=== PATIENT | male | born 1930 | race Caucasian/White ===

== ENCOUNTER 2020-10-25 14:40 | Inpatient (IN) ==
[2020-10-26] MEDS ORDERED: D5% in Water 1,000 ML IVC PRN (17:29)
[2020-10-26] MEDS ORDERED: Dextrose Gel 15 GM/37.5 ML TUBE PO PRN ×2 (17:29)
[2020-10-26] MEDS ORDERED: *HR* Dextrose 50 % in Water (Vial) 50 ML VIAL IVP PRN (17:29)
[2020-10-26] MEDS: Sennosides/Docusate Sodium TABLET PO SCH (20:19)
[2020-10-26] MEDS ORDERED: [UNRECOGNIZED DRUG - OTHER] PO SCH (21:00)
[2020-10-26] MEDS: Insulin LISPRO 300 UNITS/3 ML VIAL SUBQ SCH (21:27)
[2020-10-27 08:01] LABS: Basophils % 0.2 %; Eosinophils # 0.3 K/mcL (0.0-0.6); Hematocrit 24.1 % (37.5-50.1); Hemoglobin 7.9 g/dL (12.9-16.9); Immature Granulocytes % 1.1 % (0-4); Lymphocytes # 1.5 K/mcL (0.6-4.6); Lymphocytes % 13.9 %; Mean Corpuscular HGB Conc 32.8 g/dL (31.6-35.5); Mean Corpuscular Hemoglobin 35.1 pg (28.0-33.3); Mean Corpuscular Volume 107.1 fL (83.0-100.0); Mean Platelet Volume 11.1 fL (9.4-12.4); Monocytes # 1.3 K/mcL (0.0-1.3); Monocytes % 11.7 %; Neutrophils # 7.8 K/mcL (1.6-8.9); Platelet Count 328 K/mcL (140-400); Red Blood Count 2.25 M/mcL (4.19-5.50); Red Cell Distribution Width 16.1 % (11.5-14.5); Segmented Neutrophils % 70.1 %; White Blood Count 11.1 K/mcL (4.3-11.1)
[2020-10-27 08:14] LABS: Calcium 7.6 mg/dL (8.6-10.3); Potassium 4.2 mEq/L (3.5-5.1)
[2020-10-27] MEDS ORDERED: Furosemide 20 MG/2 ML VIAL IVP ONE ×2 (08:46→16:07)
[2020-10-27] MEDS: Multivit/Ca/Min/Fe/FA 1 TAB TABLET PO SCH (09:25)
[2020-10-27] MEDS: GlipiZIDE 5 MG TABLET PO SCH ×2 (09:25→16:41)
[2020-10-27] MEDS: allopurinoL 300 MG TABLET PO SCH (09:25)
[2020-10-27] MEDS: *HR* Pioglitazone 45 MG TABLET PO SCH (09:25)
[2020-10-27] MEDS: Finasteride 5 MG TABLET PO SCH (09:26)
[2020-10-27] MEDS: Insulin LISPRO 300 UNITS/3 ML VIAL SUBQ SCH ×4 (09:26→20:39)
[2020-10-27] MEDS: Sennosides/Docusate Sodium TABLET PO SCH ×2 (09:32→20:39)
[2020-10-28 07:45] LABS: Hematocrit 24.5 % (37.5-50.1); Mean Corpuscular HGB Conc 32.7 g/dL (31.6-35.5); Mean Corpuscular Hemoglobin 35.1 pg (28.0-33.3); Mean Corpuscular Volume 107.5 fL (83.0-100.0); Mean Platelet Volume 10.9 fL (9.4-12.4); Platelet Count 340 K/mcL (140-400); Red Blood Count 2.28 M/mcL (4.19-5.50); Red Cell Distribution Width 16.5 % (11.5-14.5); White Blood Count 11.3 K/mcL (4.3-11.1)
[2020-10-28 08:03] LABS: Calcium 7.7 mg/dL (8.6-10.3); Potassium 4.3 mEq/L (3.5-5.1)
[2020-10-28] MEDS ORDERED: Furosemide 20 MG TABLET PO SCH (09:00)
[2020-10-28] MEDS: *HR* Pioglitazone 45 MG TABLET PO SCH (11:32)
[2020-10-28] MEDS: Insulin LISPRO 300 UNITS/3 ML VIAL SUBQ SCH ×4 (11:32→20:22)
[2020-10-28] MEDS: GlipiZIDE 5 MG TABLET PO SCH ×2 (11:33→16:34)
[2020-10-28] MEDS: Furosemide 20 MG TABLET PO SCH ×2 (11:33→16:34)
[2020-10-28] MEDS: Finasteride 5 MG TABLET PO SCH (11:33)
[2020-10-28] MEDS: Multivit/Ca/Min/Fe/FA 1 TAB TABLET PO SCH (11:33)
[2020-10-28] MEDS: allopurinoL 300 MG TABLET PO SCH (11:33)
[2020-10-28] MEDS: Sennosides/Docusate Sodium TABLET PO SCH ×2 (11:33→20:24)
[2020-10-29] MEDS: Insulin LISPRO 300 UNITS/3 ML VIAL SUBQ SCH ×4 (07:31→20:37)
[2020-10-29] MEDS: Sennosides/Docusate Sodium TABLET PO SCH ×2 (09:06→20:37)
[2020-10-29] MEDS: Furosemide 20 MG TABLET PO SCH ×2 (09:07→17:25)
[2020-10-29] MEDS: *HR* Pioglitazone 45 MG TABLET PO SCH (09:07)
[2020-10-29] MEDS: allopurinoL 300 MG TABLET PO SCH (09:07)
[2020-10-29] MEDS: GlipiZIDE 5 MG TABLET PO SCH ×2 (09:07→17:24)
[2020-10-29] MEDS: Finasteride 5 MG TABLET PO SCH (09:07)
[2020-10-29] MEDS: Multivit/Ca/Min/Fe/FA 1 TAB TABLET PO SCH (09:07)
[2020-10-29] MEDS: Acetaminophen 325 MG TABLET PO PRN (09:28)
[2020-10-30 07:16] VITALS: BP 138/68
[2020-10-30] MEDS: Insulin LISPRO 300 UNITS/3 ML VIAL SUBQ SCH (08:22)
[2020-10-30 09:43] LABS: Hemoglobin 8.8 g/dL (12.9-16.9); Mean Corpuscular HGB Conc 32.6 g/dL (31.6-35.5); Mean Corpuscular Hemoglobin 35.5 pg (28.0-33.3); Mean Corpuscular Volume 108.9 fL (83.0-100.0); Mean Platelet Volume 10.9 fL (9.4-12.4); Platelet Count 381 K/mcL (140-400); Red Blood Count 2.48 M/mcL (4.19-5.50); White Blood Count 12.9 K/mcL (4.3-11.1)
[2020-10-30] MEDS: *HR* Pioglitazone 45 MG TABLET PO SCH (09:53)
[2020-10-30] MEDS: GlipiZIDE 5 MG TABLET PO SCH (09:53)
[2020-10-30] MEDS: Acetaminophen 325 MG TABLET PO PRN (09:53)
[2020-10-30] MEDS: Multivit/Ca/Min/Fe/FA 1 TAB TABLET PO SCH (09:53)
[2020-10-30] MEDS: allopurinoL 300 MG TABLET PO SCH (09:54)
[2020-10-30] MEDS: Sennosides/Docusate Sodium TABLET PO SCH (09:54)
[2020-10-30] MEDS: Finasteride 5 MG TABLET PO SCH (09:54)
[2020-10-30] MEDS: Furosemide 20 MG TABLET PO SCH (09:54)
[2020-10-30 10:02] LABS: Albumin 2.1 g/dL (3.5-5.7); Albumin/Globulin Ratio 0.6 (1.1-2.2); Bilirubin,Total 0.7 mg/dL (0.3-1.0); Calcium 7.7 mg/dL (8.6-10.3); Globulin 3.4 g/dL (2.4-3.5); Magnesium 2.1 mg/dL (1.6-2.6); Potassium 4.1 mEq/L (3.5-5.1); Total Protein 5.5 g/dL (6.4-8.9)
== END 2020-10-30 11:30 | disposition short-term general hospital (02) | DRG 559 ==
LOC: INPPIK 10-26 18:33
PROVIDERS: ADMIT Family Medicine; ATTEND Family Medicine

== ENCOUNTER 2020-11-01 17:58 | Inpatient (IN) ==
[2020-11-01] MEDS ORDERED: Nitroglycerin 0.4 MG TAB.SUBL SL PRN (20:23)
[2020-11-01] MEDS ORDERED: Psyllium 1 PACKET POWD.PACK PO PRN (20:23)
[2020-11-01] MEDS ORDERED: polyethylene glycoL 3350 17 GM POWD.PACK PO PRN (20:23)
[2020-11-01] MEDS: ICAPS AREDS2 PO SCH (22:05)
[2020-11-01] MEDS: OXcarbazepine 150 MG TABLET PO SCH (22:05)
[2020-11-01] MEDS: GlipiZIDE 5 MG TABLET PO SCH (22:05)
[2020-11-02] MEDS ORDERED: *HR* Enoxaparin 40 MG/0.4 ML SYRINGE SQ SCH (07:00)
[2020-11-02 08:16] LABS: Basophils % 0.2 %; Eosinophils # 0.4 K/mcL (0.0-0.6); Eosinophils % 4.4 %; Hematocrit 25.1 % (37.5-50.1); Hemoglobin 8.3 g/dL (12.9-16.9); Immature Granulocytes % 0.5 % (0-4); Lymphocytes # 1.5 K/mcL (0.6-4.6); Lymphocytes % 15.3 %; Mean Corpuscular HGB Conc 33.1 g/dL (31.6-35.5); Mean Corpuscular Hemoglobin 35.2 pg (28.0-33.3); Mean Corpuscular Volume 106.4 fL (83.0-100.0); Mean Platelet Volume 11.1 fL (9.4-12.4); Monocytes % 9.6 %; Neutrophils # 6.9 K/mcL (1.6-8.9); Platelet Count 298 K/mcL (140-400); Red Blood Count 2.36 M/mcL (4.19-5.50); Red Cell Distribution Width 16.7 % (11.5-14.5); White Blood Count 9.9 K/mcL (4.3-11.1)
[2020-11-02] MEDS: *HR* Pioglitazone 45 MG TABLET PO SCH (08:56)
[2020-11-02] MEDS: Furosemide 20 MG TABLET PO SCH ×2 (08:56→16:30)
[2020-11-02] MEDS: allopurinoL 300 MG TABLET PO SCH (08:58)
[2020-11-02] MEDS: Finasteride 5 MG TABLET PO SCH (08:58)
[2020-11-02] MEDS: GlipiZIDE 5 MG TABLET PO SCH ×2 (08:58→21:12)
[2020-11-02] MEDS: Multivit/Ca/Min/Fe/FA 1 TAB TABLET PO SCH (08:58)
[2020-11-02] MEDS: OXcarbazepine 150 MG TABLET PO SCH ×2 (08:58→21:12)
[2020-11-02 08:59] LABS: Calcium 7.6 mg/dL (8.6-10.3)
[2020-11-02] MEDS: ICAPS AREDS2 PO SCH ×3 (08:59→21:14)
[2020-11-02] MEDS ORDERED: CO Q10 100 MG PO SCH (09:00)
[2020-11-02] MEDS ORDERED: D5% in Water 1,000 ML IVC PRN (18:38)
[2020-11-02] MEDS ORDERED: Dextrose Gel 15 GM/37.5 ML TUBE PO PRN ×2 (18:38)
[2020-11-02] MEDS ORDERED: *HR* Dextrose 50 % in Water (Vial) 50 ML VIAL IVP PRN (18:38)
[2020-11-02] MEDS: Insulin LISPRO 300 UNITS/3 ML VIAL SUBQ SCH (21:14)
[2020-11-03] MEDS: *HR* Enoxaparin 30 MG/0.3 ML SYRINGE SQ SCH (05:57)
[2020-11-03] MEDS: Insulin LISPRO 300 UNITS/3 ML VIAL SUBQ SCH ×4 (10:07→20:32)
[2020-11-03] MEDS: GlipiZIDE 5 MG TABLET PO SCH ×2 (10:08→20:31)
[2020-11-03] MEDS: allopurinoL 300 MG TABLET PO SCH (10:08)
[2020-11-03] MEDS: Furosemide 20 MG TABLET PO SCH ×2 (10:08→17:37)
[2020-11-03] MEDS: OXcarbazepine 150 MG TABLET PO SCH ×2 (10:09→20:31)
[2020-11-03] MEDS: Finasteride 5 MG TABLET PO SCH (10:09)
[2020-11-03] MEDS: Multivit/Ca/Min/Fe/FA 1 TAB TABLET PO SCH (10:09)
[2020-11-03] MEDS: *HR* Pioglitazone 45 MG TABLET PO SCH (10:09)
[2020-11-03] MEDS: ICAPS AREDS2 PO SCH ×2 (10:15→20:31)
[2020-11-04] MEDS: *HR* Enoxaparin 30 MG/0.3 ML SYRINGE SQ SCH (06:06)
[2020-11-04] MEDS: Acetaminophen 325 MG TABLET PO PRN (09:38)
[2020-11-04] MEDS: OXcarbazepine 150 MG TABLET PO SCH ×2 (09:52→20:36)
[2020-11-04] MEDS: *HR* Pioglitazone 45 MG TABLET PO SCH (09:53)
[2020-11-04] MEDS: Furosemide 20 MG TABLET PO SCH ×2 (09:53→16:56)
[2020-11-04] MEDS: Multivit/Ca/Min/Fe/FA 1 TAB TABLET PO SCH (09:53)
[2020-11-04] MEDS: allopurinoL 300 MG TABLET PO SCH (09:53)
[2020-11-04] MEDS: Finasteride 5 MG TABLET PO SCH (09:53)
[2020-11-04] MEDS: Insulin LISPRO 300 UNITS/3 ML VIAL SUBQ SCH ×4 (09:53→20:35)
[2020-11-04] MEDS: GlipiZIDE 5 MG TABLET PO SCH ×2 (09:53→20:36)
[2020-11-04] MEDS: ICAPS AREDS2 PO SCH ×2 (09:55→20:36)
[2020-11-04] MEDS ORDERED: *HR* Enoxaparin 60 MG/0.6 ML SYRINGE SQ STA (17:05)
[2020-11-05] MEDS: ICAPS AREDS2 PO SCH ×2 (10:52→20:08)
[2020-11-05] MEDS: *HR* Pioglitazone 45 MG TABLET PO SCH (10:54)
[2020-11-05] MEDS: allopurinoL 300 MG TABLET PO SCH (10:54)
[2020-11-05] MEDS: GlipiZIDE 5 MG TABLET PO SCH ×2 (10:54→20:07)
[2020-11-05] MEDS: OXcarbazepine 150 MG TABLET PO SCH ×2 (10:54→20:07)
[2020-11-05] MEDS: *HR* Rivaroxaban 15 MG TABLET PO SCH ×2 (10:54→17:39)
[2020-11-05] MEDS: Multivit/Ca/Min/Fe/FA 1 TAB TABLET PO SCH (10:54)
[2020-11-05] MEDS: Finasteride 5 MG TABLET PO SCH (10:55)
[2020-11-05] MEDS: Furosemide 20 MG TABLET PO SCH ×2 (10:55→17:39)
[2020-11-05] MEDS: Insulin LISPRO 300 UNITS/3 ML VIAL SUBQ SCH ×4 (11:02→19:57)
[2020-11-05] MEDS: Acetaminophen 325 MG TABLET PO PRN (11:50)
[2020-11-06] MEDS: Insulin LISPRO 300 UNITS/3 ML VIAL SUBQ SCH ×4 (07:55→21:19)
[2020-11-06] MEDS: Finasteride 5 MG TABLET PO SCH (08:45)
[2020-11-06] MEDS: *HR* Pioglitazone 45 MG TABLET PO SCH (08:45)
[2020-11-06] MEDS: allopurinoL 300 MG TABLET PO SCH (08:45)
[2020-11-06] MEDS: Furosemide 20 MG TABLET PO SCH ×2 (08:45→17:20)
[2020-11-06] MEDS: OXcarbazepine 150 MG TABLET PO SCH ×2 (08:46→21:16)
[2020-11-06] MEDS: Multivit/Ca/Min/Fe/FA 1 TAB TABLET PO SCH (08:46)
[2020-11-06] MEDS: *HR* Rivaroxaban 15 MG TABLET PO SCH ×2 (08:46→17:21)
[2020-11-06] MEDS: GlipiZIDE 5 MG TABLET PO SCH ×2 (08:46→21:16)
[2020-11-06] MEDS: ICAPS AREDS2 PO SCH ×2 (08:52→21:16)
[2020-11-07] MEDS: Insulin LISPRO 300 UNITS/3 ML VIAL SUBQ SCH ×4 (08:15→20:23)
[2020-11-07] MEDS: GlipiZIDE 5 MG TABLET PO SCH ×2 (08:42→20:22)
[2020-11-07] MEDS: Finasteride 5 MG TABLET PO SCH (08:43)
[2020-11-07] MEDS: *HR* Pioglitazone 45 MG TABLET PO SCH (08:43)
[2020-11-07] MEDS: *HR* Rivaroxaban 15 MG TABLET PO SCH ×2 (08:44→17:05)
[2020-11-07] MEDS: allopurinoL 300 MG TABLET PO SCH (08:44)
[2020-11-07] MEDS: Furosemide 20 MG TABLET PO SCH ×2 (08:44→17:05)
[2020-11-07] MEDS: OXcarbazepine 150 MG TABLET PO SCH ×2 (08:44→20:23)
[2020-11-07] MEDS: Multivit/Ca/Min/Fe/FA 1 TAB TABLET PO SCH (08:44)
[2020-11-07] MEDS: ICAPS AREDS2 PO SCH ×2 (08:47→20:22)
[2020-11-08] MEDS: Insulin LISPRO 300 UNITS/3 ML VIAL SUBQ SCH ×4 (07:40→21:27)
[2020-11-08] MEDS: Multivit/Ca/Min/Fe/FA 1 TAB TABLET PO SCH (09:36)
[2020-11-08] MEDS: allopurinoL 300 MG TABLET PO SCH (09:37)
[2020-11-08] MEDS: OXcarbazepine 150 MG TABLET PO SCH ×2 (09:37→21:25)
[2020-11-08] MEDS: GlipiZIDE 5 MG TABLET PO SCH ×2 (09:37→21:25)
[2020-11-08] MEDS: Finasteride 5 MG TABLET PO SCH (09:37)
[2020-11-08] MEDS: *HR* Rivaroxaban 15 MG TABLET PO SCH ×2 (09:37→17:18)
[2020-11-08] MEDS: *HR* Pioglitazone 45 MG TABLET PO SCH (09:37)
[2020-11-08] MEDS: Furosemide 20 MG TABLET PO SCH (09:37)
[2020-11-08] MEDS: Insulin DETEMIR 100 UNIT/ML X5UNITS SUBQ SCH (09:41)
[2020-11-08] MEDS: ICAPS AREDS2 PO SCH ×2 (09:44→21:30)
[2020-11-08] MEDS: Furosemide 40 MG TABLET PO SCH (17:18)
[2020-11-09 07:39] LABS: Hematocrit 26.8 % (37.5-50.1); Hemoglobin 8.7 g/dL (12.9-16.9); Mean Corpuscular HGB Conc 32.5 g/dL (31.6-35.5); Mean Corpuscular Hemoglobin 35.4 pg (28.0-33.3); Mean Corpuscular Volume 108.9 fL (83.0-100.0); Platelet Count 335 K/mcL (140-400); Red Blood Count 2.46 M/mcL (4.19-5.50); Red Cell Distribution Width 16.5 % (11.5-14.5); White Blood Count 8.8 K/mcL (4.3-11.1)
[2020-11-09 07:53] LABS: Calcium 7.9 mg/dL (8.6-10.3); Potassium 4.3 mEq/L (3.5-5.1)
[2020-11-09] MEDS: Insulin LISPRO 300 UNITS/3 ML VIAL SUBQ SCH ×4 (07:53→21:50)
[2020-11-09] MEDS: Multivit/Ca/Min/Fe/FA 1 TAB TABLET PO SCH (08:26)
[2020-11-09] MEDS: Furosemide 40 MG TABLET PO SCH ×2 (08:26→16:29)
[2020-11-09] MEDS: OXcarbazepine 150 MG TABLET PO SCH ×2 (08:26→21:50)
[2020-11-09] MEDS: Finasteride 5 MG TABLET PO SCH (08:26)
[2020-11-09] MEDS: GlipiZIDE 5 MG TABLET PO SCH ×2 (08:26→21:50)
[2020-11-09] MEDS: *HR* Pioglitazone 45 MG TABLET PO SCH (08:27)
[2020-11-09] MEDS: allopurinoL 300 MG TABLET PO SCH (08:27)
[2020-11-09] MEDS: *HR* Rivaroxaban 15 MG TABLET PO SCH ×2 (08:28→16:29)
[2020-11-09] MEDS: ICAPS AREDS2 PO SCH ×2 (08:30→21:50)
[2020-11-09] MEDS: Insulin DETEMIR 100 UNIT/ML X5UNITS SUBQ SCH (08:34)
[2020-11-10] MEDS: Insulin LISPRO 300 UNITS/3 ML VIAL SUBQ SCH ×4 (08:01→21:13)
[2020-11-10 08:47] LABS: Basophils % 0.3 %; Eosinophils # 0.5 K/mcL (0.0-0.6); Eosinophils % 5.6 %; Hematocrit 26.6 % (37.5-50.1); Hemoglobin 8.6 g/dL (12.9-16.9); Immature Granulocytes % 0.3 % (0-4); Lymphocytes # 1.3 K/mcL (0.6-4.6); Lymphocytes % 15.4 %; Mean Corpuscular HGB Conc 32.3 g/dL (31.6-35.5); Mean Corpuscular Hemoglobin 35.1 pg (28.0-33.3); Mean Corpuscular Volume 108.6 fL (83.0-100.0); Mean Platelet Volume 11.1 fL (9.4-12.4); Monocytes % 11.9 %; Neutrophils # 5.7 K/mcL (1.6-8.9); Platelet Count 323 K/mcL (140-400); Red Blood Count 2.45 M/mcL (4.19-5.50); Red Cell Distribution Width 16.6 % (11.5-14.5); Segmented Neutrophils % 66.5 %; White Blood Count 8.6 K/mcL (4.3-11.1)
[2020-11-10 08:54] LABS: Calcium 7.7 mg/dL (8.6-10.3); Potassium 4.1 mEq/L (3.5-5.1)
[2020-11-10] MEDS ORDERED: Ipratropium/Albuterol Neb 3 ML IH PRN (09:09)
[2020-11-10] MEDS: *HR* Pioglitazone 45 MG TABLET PO SCH (12:24)
[2020-11-10] MEDS: *HR* Rivaroxaban 15 MG TABLET PO SCH ×2 (12:25→16:57)
[2020-11-10] MEDS: Furosemide 40 MG TABLET PO SCH ×2 (12:25→16:58)
[2020-11-10] MEDS: Finasteride 5 MG TABLET PO SCH (12:26)
[2020-11-10] MEDS: OXcarbazepine 150 MG TABLET PO SCH ×2 (12:26→21:12)
[2020-11-10] MEDS: ICAPS AREDS2 PO SCH ×2 (12:26→21:15)
[2020-11-10] MEDS: allopurinoL 300 MG TABLET PO SCH (12:26)
[2020-11-10] MEDS: Multivit/Ca/Min/Fe/FA 1 TAB TABLET PO SCH (12:26)
[2020-11-10] MEDS: Insulin DETEMIR 100 UNIT/ML X5UNITS SUBQ SCH (12:26)
[2020-11-10] MEDS: GlipiZIDE 5 MG TABLET PO SCH ×2 (12:26→21:12)
[2020-11-11] MEDS: *HR* HYDROcodone/Acet 5/325 mg TABLET PO PRN (06:21)
[2020-11-11] MEDS: Insulin LISPRO 300 UNITS/3 ML VIAL SUBQ SCH ×4 (08:01→20:58)
[2020-11-11] MEDS: GlipiZIDE 5 MG TABLET PO SCH ×2 (09:09→20:57)
[2020-11-11] MEDS: Multivit/Ca/Min/Fe/FA 1 TAB TABLET PO SCH (09:09)
[2020-11-11] MEDS: Furosemide 40 MG TABLET PO SCH ×2 (09:09→18:13)
[2020-11-11] MEDS: *HR* Pioglitazone 45 MG TABLET PO SCH (09:09)
[2020-11-11] MEDS: allopurinoL 300 MG TABLET PO SCH (09:16)
[2020-11-11] MEDS: Finasteride 5 MG TABLET PO SCH (09:16)
[2020-11-11] MEDS: OXcarbazepine 150 MG TABLET PO SCH ×2 (09:16→20:58)
[2020-11-11] MEDS: *HR* Rivaroxaban 15 MG TABLET PO SCH ×2 (09:16→18:13)
[2020-11-11] MEDS: Insulin DETEMIR 100 UNIT/ML X5UNITS SUBQ SCH (09:19)
[2020-11-11] MEDS: ICAPS AREDS2 PO SCH ×2 (09:22→20:59)
[2020-11-12] MEDS: Insulin LISPRO 300 UNITS/3 ML VIAL SUBQ SCH ×4 (07:40→21:05)
[2020-11-12] MEDS: Multivit/Ca/Min/Fe/FA 1 TAB TABLET PO SCH (09:09)
[2020-11-12] MEDS: *HR* Pioglitazone 45 MG TABLET PO SCH (09:09)
[2020-11-12] MEDS: allopurinoL 300 MG TABLET PO SCH (09:09)
[2020-11-12] MEDS: OXcarbazepine 150 MG TABLET PO SCH ×2 (09:09→21:04)
[2020-11-12] MEDS: GlipiZIDE 5 MG TABLET PO SCH ×2 (09:09→21:04)
[2020-11-12] MEDS: Finasteride 5 MG TABLET PO SCH (09:09)
[2020-11-12] MEDS: Furosemide 40 MG TABLET PO SCH ×2 (09:09→17:45)
[2020-11-12] MEDS: *HR* Rivaroxaban 15 MG TABLET PO SCH ×2 (09:09→17:41)
[2020-11-12] MEDS: Insulin DETEMIR 100 UNIT/ML X5UNITS SUBQ SCH (09:10)
[2020-11-12] MEDS: ICAPS AREDS2 PO SCH ×2 (09:15→21:07)
[2020-11-12] MEDS: Acetaminophen 325 MG TABLET PO PRN (10:45)
[2020-11-13] MEDS: Insulin LISPRO 300 UNITS/3 ML VIAL SUBQ SCH ×4 (08:28→21:41)
[2020-11-13] MEDS: Insulin DETEMIR 100 UNIT/ML X5UNITS SUBQ SCH (10:01)
[2020-11-13] MEDS: GlipiZIDE 5 MG TABLET PO SCH ×2 (10:01→21:44)
[2020-11-13] MEDS: *HR* Pioglitazone 45 MG TABLET PO SCH (10:01)
[2020-11-13] MEDS: *HR* Rivaroxaban 15 MG TABLET PO SCH ×2 (10:02→16:55)
[2020-11-13] MEDS: Furosemide 20 MG TABLET PO SCH ×2 (10:02→16:56)
[2020-11-13] MEDS: OXcarbazepine 150 MG TABLET PO SCH ×2 (10:02→21:43)
[2020-11-13] MEDS: Finasteride 5 MG TABLET PO SCH (10:02)
[2020-11-13] MEDS: Multivit/Ca/Min/Fe/FA 1 TAB TABLET PO SCH (10:03)
[2020-11-13] MEDS: allopurinoL 300 MG TABLET PO SCH (10:03)
[2020-11-13] MEDS: ICAPS AREDS2 PO SCH ×2 (10:11→21:44)
[2020-11-14 07:18] LABS: Basophils % 0.5 %; Eosinophils # 0.6 K/mcL (0.0-0.6); Eosinophils % 7.5 %; Hematocrit 26.7 % (37.5-50.1); Hemoglobin 8.6 g/dL (12.9-16.9); Immature Granulocytes % 0.3 % (0-4); Lymphocytes # 1.4 K/mcL (0.6-4.6); Lymphocytes % 18.6 %; Mean Corpuscular HGB Conc 32.2 g/dL (31.6-35.5); Mean Corpuscular Hemoglobin 35.1 pg (28.0-33.3); Mean Platelet Volume 11.4 fL (9.4-12.4); Monocytes # 0.7 K/mcL (0.0-1.3); Monocytes % 9.7 %; Neutrophils # 4.8 K/mcL (1.6-8.9); Platelet Count 313 K/mcL (140-400); Red Blood Count 2.45 M/mcL (4.19-5.50); Red Cell Distribution Width 16.2 % (11.5-14.5); Segmented Neutrophils % 63.4 %; White Blood Count 7.6 K/mcL (4.3-11.1)
[2020-11-14 07:48] LABS: Calcium 7.7 mg/dL (8.6-10.3); Potassium 3.6 mEq/L (3.5-5.1)
[2020-11-14] MEDS: ICAPS AREDS2 PO SCH ×2 (08:50→20:36)
[2020-11-14] MEDS: Finasteride 5 MG TABLET PO SCH (08:51)
[2020-11-14] MEDS: *HR* Rivaroxaban 15 MG TABLET PO SCH ×2 (08:51→17:06)
[2020-11-14] MEDS: Insulin DETEMIR 100 UNIT/ML X5UNITS SUBQ SCH (08:51)
[2020-11-14] MEDS: GlipiZIDE 5 MG TABLET PO SCH ×2 (08:51→20:35)
[2020-11-14] MEDS: OXcarbazepine 150 MG TABLET PO SCH ×2 (08:52→20:35)
[2020-11-14] MEDS: *HR* Pioglitazone 45 MG TABLET PO SCH (08:52)
[2020-11-14] MEDS: Multivit/Ca/Min/Fe/FA 1 TAB TABLET PO SCH (08:52)
[2020-11-14] MEDS: Furosemide 20 MG TABLET PO SCH ×2 (08:52→17:06)
[2020-11-14] MEDS: allopurinoL 300 MG TABLET PO SCH (08:52)
[2020-11-14] MEDS: Insulin LISPRO 300 UNITS/3 ML VIAL SUBQ SCH ×4 (08:53→20:35)
[2020-11-14] MEDS: Acetaminophen 325 MG TABLET PO PRN (09:02)
[2020-11-15] MEDS: *HR* HYDROcodone/Acet 5/325 mg TABLET PO PRN (02:10)
[2020-11-15] MEDS: Insulin DETEMIR 100 UNIT/ML X5UNITS SUBQ SCH (08:27)
[2020-11-15] MEDS: Insulin LISPRO 300 UNITS/3 ML VIAL SUBQ SCH ×4 (08:27→21:37)
[2020-11-15] MEDS: Finasteride 5 MG TABLET PO SCH (08:28)
[2020-11-15] MEDS: allopurinoL 300 MG TABLET PO SCH (08:28)
[2020-11-15] MEDS: polyethylene glycoL 3350 17 GM POWD.PACK PO SCH (08:28)
[2020-11-15] MEDS: *HR* Pioglitazone 45 MG TABLET PO SCH (08:29)
[2020-11-15] MEDS: GlipiZIDE 5 MG TABLET PO SCH ×2 (08:29→21:38)
[2020-11-15] MEDS: Multivit/Ca/Min/Fe/FA 1 TAB TABLET PO SCH (08:29)
[2020-11-15] MEDS: OXcarbazepine 150 MG TABLET PO SCH ×2 (08:29→21:37)
[2020-11-15] MEDS: *HR* Rivaroxaban 15 MG TABLET PO SCH ×2 (08:29→17:08)
[2020-11-15] MEDS: Furosemide 20 MG TABLET PO SCH ×2 (08:29→17:08)
[2020-11-15] MEDS: ICAPS AREDS2 PO SCH ×2 (08:35→21:39)
[2020-11-16 04:55] LABS: Basophils % 0.2 %; Eosinophils % 0.2 %; Hematocrit 25.1 % (37.5-50.1); Hemoglobin 8.3 g/dL (12.9-16.9); Immature Granulocytes % 0.4 % (0-4); Lymphocytes # 1.5 K/mcL (0.6-4.6); Lymphocytes % 7.9 %; Mean Corpuscular HGB Conc 33.1 g/dL (31.6-35.5); Mean Corpuscular Hemoglobin 35.8 pg (28.0-33.3); Mean Corpuscular Volume 108.2 fL (83.0-100.0); Mean Platelet Volume 11.3 fL (9.4-12.4); Neutrophils # 16.2 K/mcL (1.6-8.9); Platelet Count 311 K/mcL (140-400); Red Blood Count 2.32 M/mcL (4.19-5.50); Red Cell Distribution Width 16.2 % (11.5-14.5); Segmented Neutrophils % 84.3 %; White Blood Count 19.2 K/mcL (4.3-11.1)
[2020-11-16 05:18] LABS: Monocytes # 1.3 K/mcL (0.0-1.3)
[2020-11-16 07:33] LABS: Calcium 7.6 mg/dL (8.6-10.3); Potassium 3.7 mEq/L (3.5-5.1)
[2020-11-16] MEDS: Insulin LISPRO 300 UNITS/3 ML VIAL SUBQ SCH ×4 (08:05→20:07)
[2020-11-16] MEDS: GlipiZIDE 5 MG TABLET PO SCH ×2 (09:12→20:06)
[2020-11-16] MEDS: allopurinoL 300 MG TABLET PO SCH (09:12)
[2020-11-16] MEDS: Multivit/Ca/Min/Fe/FA 1 TAB TABLET PO SCH (09:12)
[2020-11-16] MEDS: polyethylene glycoL 3350 17 GM POWD.PACK PO SCH (09:12)
[2020-11-16] MEDS: Insulin DETEMIR 100 UNIT/ML X5UNITS SUBQ SCH (09:12)
[2020-11-16] MEDS: Finasteride 5 MG TABLET PO SCH (09:12)
[2020-11-16] MEDS: Furosemide 20 MG TABLET PO SCH (09:13)
[2020-11-16] MEDS: *HR* Pioglitazone 45 MG TABLET PO SCH (09:13)
[2020-11-16] MEDS: *HR* Rivaroxaban 15 MG TABLET PO SCH ×2 (09:13→17:27)
[2020-11-16] MEDS: OXcarbazepine 150 MG TABLET PO SCH ×2 (09:13→20:06)
[2020-11-16] MEDS: ICAPS AREDS2 PO SCH ×2 (09:15→20:08)
[2020-11-16 09:18] LABS: Bilirubin,Urine Negative (Negative); Blood,Urine Small (Negative); Clarity,Urine Clear (Clear); Color,Urine Yellow (Yellow); Glucose,Urine (UA) Normal (Normal); Ketones,Urine Negative (Negative); Leukocyte Esterase,Urine Moderate (Negative); Nitrite,Urine Positive (Negative); Protein,Urine 30 mg/dL (Neg-Trace); Urobilinogen,Urine Normal (Normal)
[2020-11-16 09:26] LABS: Bacteria,Urine Many per hpf (None-Few); Squamous Epithelial Cell,Urine Few per hpf (None-Few); WBC,Urine 50-100 per hpf (0-3)
[2020-11-16 10:33] LABS: Adenovirus Not Detected (Not Detect); Bordetella Pertussis Not Detected (Not Detect); Chlamydophila pneumoniae Not Detected (Not Detect); Coronavirus 229E Not Detected (Not Detect); Coronavirus HKU1 Not Detected (Not Detect); Coronavirus NL63 Not Detected (Not Detect); Coronavirus OC43 Not Detected (Not Detect); Human Metapneumovirus Not Detected (Not Detect); Human Rhinovirus/Enterovirus Not Detected (Not Detect); Influenza A Subtype 2009 H1 Not Detected (Not Detect); Influenza B Not Detected (Not Detect); Mycoplasma pneumoniae Not Detected (Not Detect); Parainfluenza Virus 1 Not Detected (Not Detect); Parainfluenza Virus 2 Not Detected (Not Detect); Parainfluenza Virus 3 Not Detected (Not Detect); Parainfluenza Virus 4 Not Detected (Not Detect); Respiratory Syncytial Virus Not Detected (Not Detect); SARS-CoV-2 Not Detected (Not Detect)
[2020-11-16] MEDS ORDERED: cefTRIAXone 2,000 MG in 0.9 % Sodium Chloride Mini Bag 100 ML IVPB SCH (11:00)
[2020-11-16] MEDS ORDERED: Azithromycin 500 MG in 0.9 % Sodium Chloride 250 ML IVPB SCH (12:00)
[2020-11-16] MEDS: Ipratropium/Albuterol Neb 3 ML IH SCH ×2 (13:23→22:55)
[2020-11-16] MEDS: MethylPREDNISolone 40 MG/ML VIAL IVP SCH (17:29)
[2020-11-16] MEDS: Furosemide 20 MG/2 ML VIAL IVP SCH (20:06)
[2020-11-17] MEDS: MethylPREDNISolone 40 MG/ML VIAL IVP SCH ×4 (02:09→23:05)
[2020-11-17] MEDS: Ipratropium/Albuterol Neb 3 ML IH SCH ×4 (03:17→22:22)
[2020-11-17 07:26] LABS: Basophils % 0.1 %; Hemoglobin 8.6 g/dL (12.9-16.9); Immature Granulocytes % 0.6 % (0-4); Lymphocytes # 0.4 K/mcL (0.6-4.6); Lymphocytes % 2.3 %; Mean Corpuscular HGB Conc 33.1 g/dL (31.6-35.5); Mean Corpuscular Hemoglobin 35.5 pg (28.0-33.3); Mean Corpuscular Volume 107.4 fL (83.0-100.0); Mean Platelet Volume 11.4 fL (9.4-12.4); Monocytes # 0.1 K/mcL (0.0-1.3); Monocytes % 0.5 %; Neutrophils # 16.9 K/mcL (1.6-8.9); Platelet Count 296 K/mcL (140-400); Red Blood Count 2.42 M/mcL (4.19-5.50); Red Cell Distribution Width 15.9 % (11.5-14.5); Segmented Neutrophils % 96.5 %; White Blood Count 17.5 K/mcL (4.3-11.1)
[2020-11-17 07:56] LABS: Calcium 7.6 mg/dL (8.6-10.3); Potassium 4.3 mEq/L (3.5-5.1)
[2020-11-17] MEDS: Furosemide 20 MG/2 ML VIAL IVP SCH (08:37)
[2020-11-17] MEDS: Insulin LISPRO 300 UNITS/3 ML VIAL SUBQ SCH ×4 (08:38→21:08)
[2020-11-17] MEDS: Insulin DETEMIR 100 UNIT/ML X5UNITS SUBQ SCH (08:39)
[2020-11-17] MEDS: *HR* Pioglitazone 45 MG TABLET PO SCH (08:40)
[2020-11-17] MEDS: *HR* Rivaroxaban 15 MG TABLET PO SCH ×2 (08:40→17:35)
[2020-11-17] MEDS: GlipiZIDE 5 MG TABLET PO SCH ×2 (08:40→21:05)
[2020-11-17] MEDS: polyethylene glycoL 3350 17 GM POWD.PACK PO SCH (08:40)
[2020-11-17] MEDS: Finasteride 5 MG TABLET PO SCH (08:40)
[2020-11-17] MEDS: allopurinoL 300 MG TABLET PO SCH (08:40)
[2020-11-17] MEDS: OXcarbazepine 150 MG TABLET PO SCH ×2 (08:40→21:06)
[2020-11-17] MEDS: Multivit/Ca/Min/Fe/FA 1 TAB TABLET PO SCH (08:40)
[2020-11-17] MEDS: ICAPS AREDS2 PO SCH ×2 (08:41→21:07)
[2020-11-17] MEDS ORDERED: *HR* Metoprolol 5 MG/5 ML VIAL IVP ONE (11:39)
[2020-11-17] MEDS ORDERED: 0.9 % Sodium Chloride 500 ML IVC ONE (11:51)
[2020-11-17] MEDS: Piperacillin/Tazobactam 3.375 GM in 0.9 % Sodium Chloride Mini Bag 100 ML IVPB SCH ×2 (13:00→23:04)
[2020-11-17] MEDS: Neosporin OINT 15 GM TUBE TP SCH (21:06)
[2020-11-18] MEDS: Ipratropium/Albuterol Neb 3 ML IH SCH ×4 (04:24→20:49)
[2020-11-18 08:01] LABS: Basophils % 0.1 %; Hematocrit 25.7 % (37.5-50.1); Hemoglobin 8.5 g/dL (12.9-16.9); Lymphocytes # 0.5 K/mcL (0.6-4.6); Lymphocytes % 3.4 %; Mean Corpuscular HGB Conc 33.1 g/dL (31.6-35.5); Mean Corpuscular Hemoglobin 35.1 pg (28.0-33.3); Mean Corpuscular Volume 106.2 fL (83.0-100.0); Mean Platelet Volume 11.6 fL (9.4-12.4); Monocytes # 0.2 K/mcL (0.0-1.3); Monocytes % 1.3 %; Neutrophils # 14.8 K/mcL (1.6-8.9); Platelet Count 319 K/mcL (140-400); Red Blood Count 2.42 M/mcL (4.19-5.50); Segmented Neutrophils % 94.2 %; White Blood Count 15.7 K/mcL (4.3-11.1)
[2020-11-18 08:17] LABS: Calcium 7.7 mg/dL (8.6-10.3); Potassium 4.1 mEq/L (3.5-5.1)
[2020-11-18] MEDS: polyethylene glycoL 3350 17 GM POWD.PACK PO SCH (08:40)
[2020-11-18] MEDS: ICAPS AREDS2 PO SCH ×2 (08:40→20:34)
[2020-11-18] MEDS: *HR* Pioglitazone 45 MG TABLET PO SCH (08:41)
[2020-11-18] MEDS: *HR* Rivaroxaban 15 MG TABLET PO SCH ×2 (08:41→17:16)
[2020-11-18] MEDS: MethylPREDNISolone 40 MG/ML VIAL IVP SCH ×2 (08:41→17:16)
[2020-11-18] MEDS: Finasteride 5 MG TABLET PO SCH (08:41)
[2020-11-18] MEDS: allopurinoL 300 MG TABLET PO SCH (08:42)
[2020-11-18] MEDS: Neosporin OINT 15 GM TUBE TP SCH (08:42)
[2020-11-18] MEDS: OXcarbazepine 150 MG TABLET PO SCH ×2 (08:42→20:32)
[2020-11-18] MEDS: GlipiZIDE 5 MG TABLET PO SCH ×2 (08:42→20:32)
[2020-11-18] MEDS: Multivit/Ca/Min/Fe/FA 1 TAB TABLET PO SCH (08:42)
[2020-11-18] MEDS: Insulin DETEMIR 100 UNIT/ML X5UNITS SUBQ SCH (08:54)
[2020-11-18] MEDS: Insulin LISPRO 300 UNITS/3 ML VIAL SUBQ SCH ×4 (08:54→20:33)
[2020-11-18] MEDS ORDERED: *HR* Metoprolol 5 MG/5 ML VIAL IVP PRN (10:41)
[2020-11-18] MEDS: Piperacillin/Tazobactam 3.375 GM in 0.9 % Sodium Chloride Mini Bag 100 ML IVPB SCH ×2 (12:45→22:11)
[2020-11-19] MEDS: Ipratropium/Albuterol Neb 3 ML IH SCH ×4 (04:06→21:04)
[2020-11-19] MEDS: MethylPREDNISolone 40 MG/ML VIAL IVP SCH ×2 (06:30→20:51)
[2020-11-19 07:01] LABS: Hematocrit 25.2 % (37.5-50.1); Hemoglobin 8.3 g/dL (12.9-16.9); Mean Corpuscular HGB Conc 32.9 g/dL (31.6-35.5); Mean Corpuscular Volume 106.3 fL (83.0-100.0); Platelet Count 306 K/mcL (140-400); Red Blood Count 2.37 M/mcL (4.19-5.50); White Blood Count 12.9 K/mcL (4.3-11.1)
[2020-11-19 07:26] LABS: Calcium 7.8 mg/dL (8.6-10.3); Magnesium 2.4 mg/dL (1.6-2.6); Potassium 4.3 mEq/L (3.5-5.1)
[2020-11-19] MEDS: Finasteride 5 MG TABLET PO SCH (07:47)
[2020-11-19] MEDS: *HR* Pioglitazone 45 MG TABLET PO SCH (07:48)
[2020-11-19] MEDS: OXcarbazepine 150 MG TABLET PO SCH ×2 (07:48→20:52)
[2020-11-19] MEDS: GlipiZIDE 5 MG TABLET PO SCH ×2 (07:48→20:52)
[2020-11-19] MEDS: Multivit/Ca/Min/Fe/FA 1 TAB TABLET PO SCH (07:48)
[2020-11-19] MEDS: *HR* Rivaroxaban 15 MG TABLET PO SCH ×2 (07:48→15:28)
[2020-11-19] MEDS: allopurinoL 300 MG TABLET PO SCH (07:48)
[2020-11-19] MEDS: Neosporin OINT 15 GM TUBE TP SCH (07:49)
[2020-11-19] MEDS: Insulin LISPRO 300 UNITS/3 ML VIAL SUBQ SCH ×4 (07:49→20:53)
[2020-11-19] MEDS: ICAPS AREDS2 PO SCH ×2 (07:49→20:52)
[2020-11-19] MEDS: Piperacillin/Tazobactam 3.375 GM in 0.9 % Sodium Chloride Mini Bag 100 ML IVPB SCH (11:42)
[2020-11-19] MEDS: Insulin DETEMIR 100 UNIT/ML X5UNITS SUBQ SCH (11:42)
[2020-11-19] MEDS: polyethylene glycoL 3350 17 GM POWD.PACK PO SCH (11:42)
[2020-11-19] MEDS ORDERED: Albumin 25% 25gram/100mL 25 GM/100 ML IV.SOLN IVPB ONE (12:59)
[2020-11-20] MEDS ORDERED: Ipratropium/Albuterol Neb 3 ML IH PRN (02:00)
[2020-11-20] MEDS: Piperacillin/Tazobactam 3.375 GM in 0.9 % Sodium Chloride Mini Bag 100 ML IVPB SCH ×3 (02:43→16:00)
[2020-11-20] MEDS: Ipratropium/Albuterol Neb 3 ML IH SCH ×2 (03:56→11:13)
[2020-11-20 07:30] LABS: Hematocrit 24.2 % (37.5-50.1); Hemoglobin 7.9 g/dL (12.9-16.9); Mean Corpuscular HGB Conc 32.6 g/dL (31.6-35.5); Mean Corpuscular Hemoglobin 35.1 pg (28.0-33.3); Mean Corpuscular Volume 107.6 fL (83.0-100.0); Mean Platelet Volume 11.3 fL (9.4-12.4); Platelet Count 269 K/mcL (140-400); Red Blood Count 2.25 M/mcL (4.19-5.50); Red Cell Distribution Width 15.6 % (11.5-14.5); White Blood Count 11.7 K/mcL (4.3-11.1)
[2020-11-20 07:43] LABS: VBG Ionized Calcium 1.17 mmol/L (1.15-1.35)
[2020-11-20 07:53] LABS: Calcium 7.8 mg/dL (8.6-10.3); Potassium 4.4 mEq/L (3.5-5.1)
[2020-11-20] MEDS ORDERED: *HR* Rivaroxaban 15 MG TABLET PO SCH (08:00)
[2020-11-20] MEDS ORDERED: MethylPREDNISolone 40 MG/ML VIAL IVP SCH (09:00)
[2020-11-20 09:23] VITALS: BP 123/69; PULSE 93; RESP 20; TEMP 97.6
[2020-11-20] MEDS: *HR* Pioglitazone 45 MG TABLET PO SCH (09:26)
[2020-11-20] MEDS: allopurinoL 300 MG TABLET PO SCH (09:27)
[2020-11-20] MEDS: Multivit/Ca/Min/Fe/FA 1 TAB TABLET PO SCH (09:27)
[2020-11-20] MEDS: Finasteride 5 MG TABLET PO SCH (09:27)
[2020-11-20] MEDS: GlipiZIDE 5 MG TABLET PO SCH (09:27)
[2020-11-20] MEDS: OXcarbazepine 150 MG TABLET PO SCH (09:27)
[2020-11-20] MEDS: polyethylene glycoL 3350 17 GM POWD.PACK PO SCH (09:28)
[2020-11-20] MEDS: ICAPS AREDS2 PO SCH (09:33)
[2020-11-20] MEDS: Insulin LISPRO 300 UNITS/3 ML VIAL SUBQ SCH ×2 (09:33→12:35)
[2020-11-20] MEDS: Insulin DETEMIR 100 UNIT/ML X5UNITS SUBQ SCH (09:33)
[2020-11-20] MEDS: Neosporin OINT 15 GM TUBE TP SCH (09:40)
[2020-11-20 13:02] VITALS: O2SAT 97
[2020-11-20] MEDS ORDERED: Albumin 25% 25gram/100mL 25 GM/100 ML IV.SOLN IVPB ONE (14:07)
== END 2020-11-20 17:28 | disposition short-term general hospital (02) | DRG 559 ==
LOC: INPPIK 20:20
PROVIDERS: ADMIT Family Medicine; ATTEND Family Medicine